=== PATIENT | male | born 1980 | race Caucasian/White ===

== ENCOUNTER 2023-01-07 02:56 | Emergency (ER) | payer SELFPAY ==
[2023-01-07 03:26] VITALS: BP 176/100; PULSE 75; RESP 20; TEMP 36.6; O2SAT 97; BMI 33.9
[2023-01-07 05:03] LABS: Basophils # 0.1 10^3/uL (0.0-0.1); Basophils % 0.8 %; Eosinophils # 0.1 10^3/uL (0.0-0.8); Eosinophils % 1.2 %; Hematocrit 45.8 % (37-53); Lymphocytes # 1.6 10^3/uL (0.8-4.8); Lymphocytes % 15.1 %; Mean Corpuscular HGB Conc 35.2 g/dL (30-55); Mean Corpuscular Hemoglobin 31.5 pg (27-33); Mean Corpuscular Volume 89.6 fl (82-101); Mean Platelet Volume 10.5 fL (7.4-10.4); Monocytes # 0.6 10^3/uL (0.2-0.9); Monocytes % 6.1 %; Neutrophils # 7.81 10^3/uL (1.8-7.7); Neutrophils % 76.2 %; Nucleated Red Blood Cells % 0 %; Platelet Count 226 10^3/cmm (157-399); Red Blood Count 5.11 10^6/uL (3.85-5.65); Red Cell Distribution Width 11.9 % (12.1-15.1); White Blood Count 10.24 10^3/uL (3.29-11.43)
[2023-01-07 05:20] VITALS: BP 133/87; PULSE 62; RESP 18; O2SAT 95
[2023-01-07 05:32] LABS: Alanine Aminotransferase 31 U/L (0-41); Albumin Level 4.8 g/dL (3.5-5.2); Alkaline Phosphatase 73 U/L (40-130); Anion Gap 15.7 (5-19); Aspartate Amino Transferase 26 U/L (0-40); Blood Urea Nitrogen 18 mg/dL (6-20); Calcium 10.1 mg/dL (8.5-10.5); Carbon Dioxide 24 mmol/L (22-29); Chloride 103 mmol/L (98-107); Globulin 3.1 g/dL (1.3-4.6); Glomerular Filtration Rate 82.3 mL/min (90-130); Glucose 163 mg/dL (65-115); Lipase 23 U/L (13-60); Osmolality Calculated 293 mOsm/kg (285-295); Potassium 3.7 mmol/L (3.5-5.1); Sodium 139 mmol/L (136-145); Total Bilirubin 0.4 mg/dL (0.15-1.2); Total Protein 7.9 g/dL (6.6-8.7)
--- NOTE | 2023-01-07 06:12 | CTR_ITS ---
PROCEDURE INFORMATION: Exam: CT Abdomen And Pelvis Without Contrast Exam date and time: 01/07/2023 6:19 AM Age: 42 years old Clinical indication: Abdominal pain; Right; Patient HX: C/O RT flank/groin pain. ; Additional info: Rlq pain rad to groin TECHNIQUE: Imaging protocol: Computed tomography of the abdomen and pelvis without contrast. Radiation optimization: All CT scans at this facility use at least one of these dose optimization techniques: automated exposure control; mA and/or kV adjustment per patient size (includes targeted exams where dose is matched to clinical indication); or iterative reconstruction. REPORTING DATA: Count of CT and Cardiac NM exams in prior 12 months: This patient has received 0 known CTs and 0 known cardiac nuclear medicine studies in the 12 months prior to the current study. COMPARISON: No relevant prior studies available. RADIATION DOSE METRICS: Total DLP (mGy-cm): 833.17 FINDINGS: Liver: Mild hepatomegaly. Gallbladder and bile ducts: Normal. No calcified stones. No ductal dilation. Pancreas: Normal. No ductal dilation. Spleen: Normal. No splenomegaly. Adrenal glands: Normal. No mass. Kidneys and ureters: Highly obstructing 6 mm mid to distal right ureteral calculus at the level iliac vessel crossing. Marked proximal ureteropelvocaliectasis with mild periureteral stranding. Stomach and bowel: Unremarkable. No obstruction. No mucosal thickening. Appendix: No evidence of appendicitis. Intraperitoneal space: Unremarkable. No free air. No significant fluid collection. Vasculature: Unremarkable. No abdominal aortic aneurysm. Lymph nodes: Unremarkable. No enlarged lymph nodes. Urinary bladder: No additional urinary calculi are observed. Reproductive: Unremarkable as visualized. Bones/joints: Unremarkable. No acute fracture. Soft tissues: Unremarkable. CT/CT kidney stone [id number] IMPRESSION: Highly obstructing right ureteral calculus.
[2023-01-07 06:25] LABS: Urine Appearance Cloudy (CLEAR); Urine Color Brown (Yellow)
[2023-01-07 06:27] LABS: Glucose Urine UA Trace (Normal); Ketones Urine 1+ (Negative); Protein Urine 1+ (Negative); pH Urine 6 (5-7)
[2023-01-07] MEDS: sodium chloride 0.9% 1,000 ML 999 ML IV (06:27)
[2023-01-07 06:28] LABS: Add Urine Microscopic? YES; Bilirubin Urine Neg (Negative); Blood Urine 3+ (Negative); Leukocyte Esterase Urine Trace (Negative); Nitrate Urine Negative (Negative); RBC Urine TOO NUMEROUS TO CNT /hpf (0-2); Urobilinogen Urine 1 mg/dL (Negative)
[2023-01-07] MEDS: ondansetron 2 mg/ML SDV 2 mL 4 MG IVP (06:28)
[2023-01-07 06:29] LABS: Add Urine Culture? Yes; Bacteria Urine 1+ /hpf
[2023-01-07 06:30] VITALS: RESP 22; O2SAT 95
[2023-01-07] MEDS: HYDROmorphone 1 mg/mL INJ 1 mL IVP (06:30)
[2023-01-07 06:31] VITALS: BP 153/92; PULSE 71; RESP 22; O2SAT 99
[2023-01-07 07:21] VITALS: BP 142/78; PULSE 74; RESP 18; O2SAT 96
--- NOTE | 2023-01-07 15:59 | ED_ITS ---
HPI - Abdominal Pain 2 General: Chief Complaint: Abdominal Pain Stated Complaint: Abd pain right low front cant talk Time Seen by Provider: 01/07/23 05:50 History of Present Illness: 42 year old male presenting this morning with several hours of right lower quadrant pain. He knows that it radiates to his groin. He has been nauseated, but has not vomited. His mother gives most of the history, as the patient seems mildly drowsy and does not wish to talk. No diarrhea. No fever. No history of belly surgery. Associated Symptoms: Reports nausea; Denies chills, diarrhea, dysuria, fever(s), hematochezia and vomiting Review of Systems 2 Const: Denies: fever(s), chills or body aches Eyes: Denies: change in vision Card: Denies: chest pain or palpitations Resp: Denies: dyspnea, productive cough, non-productive cough or wheezing GI: Reports: abdominal pain and nausea; Denies: vomiting, diarrhea or hematochezia : Reports: flank pain; Denies: dysuria Skin/Breast: Denies: rash Neuro: Denies: headache(s), weakness in extremities, dizziness or confusion Physical Exam 2 Const: COMMON NORMALS: no acute distress GENERAL APPEARANCE: cooperative; not ill appearing and not frail appearing HENMT: COMMON NORMALS: normocephalic, atraumatic and Normal external nose present HEAD & SCALP: normocephalic and atraumatic FACE & SINUS: normal facial exam and face symmetric NOSE: Normal external nose present Eye: COMMON NORMALS: Equal, round and reactive pupils present and EOMs intact bilaterally PUPIL: Yes Equal, round and reactive pupils present Neck/C-Spine: GENERAL: Yes trachea midline Chest: CHEST: Yes Symmetrical chest wall rise Resp: COMMON NORMALS: normal respiratory effort, No retractions, No use of accessory muscles and clear to auscultation bilaterally AUSCULTATION: clear to auscultation bilaterally Cardio: COMMON NORMALS: regular rate and regular rhythm RATE: regular rate RHYTHM: regular rhythm GI: COMMON NORMALS: Normal to inspection, nondistended, normoactive bowel sounds present PALPATION: Yes Tenderness to palpation present (GI) Details: RLQ Extremity: COMMON NORMALS: no pedal edema Neuro: SVETLANA COMA SCALE: document GCS findings [place] coma scale eye opening: Spontaneous [place] coma scale verbal response: Orientated [place] coma scale motor response: Obey commands [place] coma scale total score: 15 S ENSORY EXAM: Yes extremities (intact) Psych: COMMON NORMALS: speech normal SPEECH: Yes normal speech Skin: COMMON NORMALS: no rashes or lesions noted GENERAL SKIN EXAM: no rashes or lesions noted Course 2 Vital Signs: Vital signs: Vital Signs Temperature 98 F 01/07/23 03:26 Pulse Rate 74 01/07/23 07:21 Respiratory Rate 18 01/07/23 07:21 Blood Pressure 142/78 01/07/23 07:21 Pulse Oximetry 96 01/07/23 07:21 Oxygen Delivery Me thod Room Air 01/07/23 07:21 MDM - Abdominal Pain Medical Decision Making The patient seemed drowsy on exam. He is quite tender in the right lower quadrant. Serum workup is not remarkable. Urinalysis shows significant blood in the urine. CT stone protocol shows and obstructing right distal ureter stone. With no evidence of infection on UA, to be allowed to pass on a turn with conservative management. Tamsulosin, pain medication, anti emetic. We will obtain him an appointment with urology as an outpatient. They know to return for worsening symptoms despite treatment. Lab Data 01/07/23 04:55 01/07/23 04:55 Labs/Radiology: Radiology Impressions Abdomen/Pelvis CT 01/07/23 06:12 IMPRESSION: Highly obstructing right ureteral calculus. Laboratory Results WBC 10.24 10^3/uL (3.29-11.43) 01/07/23 04:55 RBC 5.11 10^6/uL (3.85-5.65) 01/07/23 04:55 Hgb 16.10 g/dL (11.27-16.99) 01/07/23 04:55 Hct 45.8 % (37-53) 01/07/23 04:55 MCV 89.6 fl (82-101) 01/07/23 04:55 MCH 31.5 pg (27-33) 01/07/23 04:55 MCHC 35.2 g/dL (30-55) 01/07/23 04:55 RDW 11.9 % (12.1-15.1) L 01/07/23 04:55 Plt Count 226 10^3/cmm (157-399) 01/07/23 04:55 MPV 10.5 fL (7.4-10.4) H 01/07/23 04:55 Neut % (Auto) 76.2 % 01/07/23 04:55 Lymph % (Auto) 15.1 % 01/07/23 04:55 [place] % (Auto) 6.1 % 01/07/23 04:55 Eos % (Auto) 1.2 % 01/07/23 04:55 Baso % (Auto) 0.8 % 01/07/23 04:55 Neut # (Auto) 7.81 10^3/uL (1.8-7.7) H 01/07/23 04:55 Lymph # (Auto) 1.6 10^3/uL (0.8-4.8) 01/07/23 04:55 [place] # (Auto) 0.6 10^3/uL (0.2-0.9) 01/07/23 04:55 Eos # (Auto) 0.1 10^3/uL (0.0-0.8) 01/07/23 04:55 Baso # (Auto) 0.1 10^3/uL (0.0-0.1) 01/07/23 04:55 Nucleated RBC % (auto) 0 % 01/07/23 04:55 Nucleated RBCs # 0.0 /100WBC 01/07/23 04:55 Sodium 139 mmol/L (136-145) 01/07/23 04:55 Potassium 3.7 mmol/L (3.5-5.1) 01/07/23 04:55 Chloride 103 mmol/L (98-107) 01/07/23 04:55 Carbon Dioxide 24 mmol/L (22-29) 01/07/23 04:55 Anion Gap 15.7 (5-19) 01/07/23 04:55 BUN 18 mg/dL (6-20) 01/07/23 04:55 Creatinine 1.0 mg/dL (0.7-1.2) 01/07/23 04:55 GFR Calculation 82.3 mL/min (90-130) L 01/07/23 04:55 Glucose 163 mg/dL (65-115) H 01/07/23 04:55 Calculated Osmolality 293 mOsm/kg (285-295) 01/07/23 04:55 Calcium 10.1 mg/dL (8.5-10.5) 01/07/23 04:55 Total Bilirubin 0.4 mg/dL (0.15-1.2) 01/07/23 04:55 AST 26 U/L (0-40) 01/07/23 04:55 ALT 31 U/L (0-41) 01/07/23 04:55 Alkaline Phosphatase 73 U/L (40-130) 01/07/23 04:55 C-Reactive Protein 3.0 mg/L (0.0-4.9) 01/07/23 04:55 Total Protein 7.9 g/dL (6.6-8.7) 01/07/23 04:55 Albumin 4.8 g/dL (3.5-5.2) 01/07/23 04:55 Globulin 3.1 g/dL (1.3-4.6) 01/07/23 04:55 Lipase 23 U/L (13-60) 01/07/23 04:55 Urine Color Brown (Yellow) A 01/07/23 06:00 Urine Appearance Cloudy (CLEAR) A 01/07/23 06:00 Urine pH 6 (5-7) 01/07/23 06:00 Ur Specific [place] 1.020 (1.005-1.030) 01/07/23 06:00 Urine Protein 1+ (Negative) H 01/07/23 06:00 Urine Glucose (UA) Trace (Normal) H 01/07/23 06:00 Urine Ketones 1+ (Negative) H 01/07/23 06:00 Urine Blood 3+ (Negative) H 01/07/23 06:00 Urine Nitrate Negative (Negative) 01/07/23 06:00 Urine Bilirubin Neg (Negative) 01/07/23 06:00 Urine Urobilinogen 1 mg/dL (Negative) H 01/07/23 06:00 Ur Leukocyte Esterase Trace (Negative) H 01/07/23 06:00 Urine RBC Too numerous to cnt /hpf (0-2) H 01/07/23 06:00 Urine WBC 5-10 /hpf (0-5) H 01/07/23 06:00 Ur Squamous Epith Cells None /hpf (0-5) 01/07/23 06:00 Amorphous Sediment Not Reportable 01/07/23 06:00 Urine Bacteria 1+ /hpf (NONE) H 01/07/23 06:00 All radiology interpretation(s) finalized by discharge Discharge Plan Discharge Patient Disposition: Home Clinical Impression: Ureterolithiasis Condition: Stable Prescriptions: New Percocet 7.5-325 mg tablet 1 tab PO Q6H PRN (Reason: pain) Qty: 10 0RF ondansetron 4 mg film 4 mg PO DAILY PRN (Reason: nausea and vomiting) Qty: 10 0RF tamsulosin 0.4 mg capsule 0.4 mg PO DAILY Qty: 10 0RF Discharge Orders: Discharge ED (Routine); Ordered 01/07/23 Ordered By: Ankur Raphael Referrals: Mumtaz Fischer MD [Primary Care Provider] - 1-3 days Patient Instructions: Kidney Stones (ED), Opioid Safety, Pain Management Activity Restrictions/Additional Instructions: Return for fever, vomiting liquids, worsening pain despite treatment, other concerning symptoms. Medication as directed. Follow-up with urology. Case management will call you next week with a urology referral. Coding Level of Care Code ED Certified Emergency Vehicle Technician for Melisa Bishop
--- NOTE | 2023-01-13 10:53 | DCPLANNER ---
Attempted to call patient on 01/09/23 at 0908 there is no voicemail box.
--- NOTE | 2023-01-13 11:26 | DCPLANNER ---
Attempted to call patient again on 01/13/23 at 1126 am. No voicemail. I was calling to see where patient would like urology referral sent to.
== END 2023-01-07 08:31 | disposition home or self-care (01) ==
PROVIDERS: Emergency Provider Emergency Medicine; PCP Family Medicine
DX: N20.1 Calculus of ureter (principal)
CPT/HCPCS: 74176; 80053; 81001; 83690; 85025; 86140; 87086; 96361; 96374; 96375; 99285; J1170; J2405; J7030